=== PATIENT | female | born 1995 | race American Indian/Alaskan Native ===

== ENCOUNTER 2020-03-24 15:11 | Emergency (ER) | payer MEDICAID ==
--- NOTE | 2020-03-24 15:56 | Emergency Department Report ---
Blank Doc - Documentation Documentation: 24-year-old female that presents with nausea, increased burping and bilatearl flank pains. This initial assessment/diagnostic orders/clinical plan/treatment(s) is/are subject to change based on patient's health status, clinical progression and re- assessment by fellow clinical providers in the ED. Further treatment and workup at subsequent clinical providers discretion. Patient/guardians urged not to elope from the ED as their condition may be serious if not clinically assessed and managed. Initial orders include: 1- Patient sent to [facility] for further evaluation and treatment 2- UA
[2020-03-24 15:58] VITALS: BP 118/69
[2020-03-24 16:49] LABS: Bilirubin,Urine NEG (Negative); Blood,Urine NEG (Negative); Color,Urine Yellow (Yellow); HCG Qualitative,Urine Positive (Negative); Mucus,Urine 3+ /HPF; Protein,Urine <15 mg/dL mg/dL (Negative)
--- NOTE | 2020-03-24 20:20 | Ultrasound Report ---
ULTRASOUND OBSTETRIC Indication: back pain patient with abdominal pain Findings: There is a single intrauterine gestational sac but no yolk sac or pole is currently identified. The gestational sac measures about 6 mm, 5 weeks and 2 days. There is a mildly complex cystlike lesion measuring 1.5 cm in diameter within the right ovary. Left o vary is normal. There is tiny free pelvic fluid. IMPRESSION: 1. Suspect early intrauterine gestational sac without evidence of yolk sac or pole at this time . Close ultrasound follow-up is suggested. 2. 1.5 cm mildly complex cyst arising from the right ovary could represent a corpus luteal cyst. Atte ntion on follow-up recommended. Signer Name: Rg Munoz MD Signed: 03/24/2020 8:15 PM Workstation Name: [id number]
--- NOTE | 2020-03-24 21:20 | Emergency Department Report ---
ED General Adult HPI - General Chief complaint: Back Pain/Injury Stated complaint: BACK PAIN/HEART BURN Time Seen by Provider: 03/24/20 15:56 Source: patient Mode of arrival: Ambulatory Limitations: No Limitations - History of Present Illness Initial comments: Patient is a 24-year-old female presents emergency room with complaints of lower back pain that began a couple of days ago. She states that she also has acid reflux and has been taking Tums which helped bring relief but then it comes back. She denies any dysuria, vomiting, diarrhea, fever, vaginal bleeding, vaginal discharge. She states her last menstrual cycle was February 14. She states that she does not have a [employer]. She denies any past medical history or allergies to medications. - Related Data Previous Rx's Medication Instructions Recorded Last Taken Type Acetaminophen [Tylenol] 650 mg PO Q8HR PRN #14 capsule 03/24/20 Unknown Rx Metoclopramide [Reglan] 10 mg PO Q8HR PRN #12 tab 03/24/20 Unknown Rx cephALEXin [Keflex] 500 mg PO BID 7 Days #14 cap 03/24/20 Unknown Rx Allergies Allergy/AdvReac Type Severity Reaction Status Date / Time No Known Allergies Allergy Unverified 03/24/20 15:58 ED Review of Systems ROS: Stated complaint: BACK PAIN/HEART BURN Other details as noted in HPI Comment: All other systems reviewed and negative ED Past Medical Hx - Past Medical History Previous Medical History?: No - Surgical History Past Surgical History?: No - Social History Smoking Status: Never Smoker Substance Use Type: None - Medications Home Medications: Home Medications Medication Instructions Recorded Confirmed Last Taken Type Acetaminophen [Tylenol] 650 mg PO Q8HR PRN #14 capsule 03/24/20 Unknown Rx Metoclopramide [Reglan] 10 mg PO Q8HR PRN #12 tab 03/24/20 Unknown Rx cephALEXin [Keflex] 500 mg PO BID 7 Days #14 cap 03/24/20 Unknown Rx ED Physical Exam - General Limitations: No Limitations General appearance: alert, in no apparent distress - Head Head exam: Present: atraumatic, normocephalic - Eye Eye exam: Present: normal appearance - ENT ENT exam: Present: mucous membranes moist - Respiratory Respiratory exam: Present: normal lung sounds bilaterally. Absent: respiratory distress, wheezes, rales, rhonchi, stridor, chest wall tenderness, accessory muscle use, decreased breath sounds, prolonged expiratory - Cardiovascular Cardiovascular Exam: Present: regular rate, normal rhythm, normal heart sounds. Absent: systolic murmur, diastolic murmur, rubs, gallop - GI/Abdominal GI/Abdominal exam: Present: soft, normal bowel sounds. Absent: distended, tenderness, guarding, rebound, rigid - Back Exam Back exam: Absent: CVA tenderness (R), CVA tenderness (L) - Neurological Exam Neurological exam: Present: alert, oriented X3 - Psychiatric Psychiatric exam: Present: normal affect, normal mood - Skin Skin exam: Present: warm, dry, intact ED Course Vital Signs 03/24/20 15:56 Temperature 98.6 F Pulse Rate 95 H Respiratory 18 Rate Blood Pressure 118/69 O2 Sat by Pulse 100 Oximetry ED Medical Decision Making - Lab Data Lab Results 03/24/20 03/24/20 Range/Units 16:10 18:33 HCG, Quant 8039 H (0-4) mIU/mL Urine Color Yellow (Yellow) Urine Turbidity Slightly-cloudy (Clear) Urine pH 5.0 (5.0-7.0) Ur Specific [place] 1.030 (1.003-1.030) Urine Protein <15 mg/dl (Negative) mg/dL Urine Glucose (UA) Neg (Negative) mg/dL Urine Ketones Tr (Negative) mg/dL Urine Blood Neg (Negative) Urine Nitrite Neg (Negative) Urine Bilirubin Neg (Negative) Urine Urobilinogen 2.0 (<2.0) mg/dL Ur Leukocyte Esterase Mod (Negative) Urine WBC (Auto) 28.0 H (0.0-6.0) /HPF Urine RBC (Auto) 4.0 (0.0-6.0) /HPF U Epithel Cells (Auto) 14.0 H (0-13.0) /HPF Urine Mucus 3+ /HPF Urine HCG, Qual Positive A (Negative) - Radiology Data Radiology results: report reviewed Ordering Physician: CYNDY DALLAS NP Date of Service: 03/24/20 Procedure(s): US OB transvaginal Accession Number(s): [id number] cc: CYNDY DALLAS NP ULTRASOUND OBSTETRIC Indication: back pain patient with abdominal pain Findings: There is a single intrauterine gestational sac but no yolk sac or pole is currently identified. The gestational sac measures about 6 mm, 5 weeks and 2 days. There is a mildly complex cystlike lesion measuring 1.5 cm in diameter within the right ovary. Left ovary is normal. There is tiny free pelvic fluid. IMPRESSION: 1. Suspect early intrauterine gestational sac without evidence of yolk sac or pole at this time. Close ultrasound follow-up is suggested. 2. 1.5 cm mildly complex cyst arising from the right ovary could represent a corpus luteal cyst. Attention on follow-up recommended. Signer Name: Rg Munoz MD Signed: 03/24/2020 8:15 PM Workstation Name: [id number] Transcribed By: Dictated By: Rg Munoz MD Electronically Authenticated By: Rg Munoz MD Signed Date/Time: 03/24/202014 DD/ 12 TD/TT: - Medical Decision Making Patient is a 24-year-old female presents emergency room with complaints of lower back pain that began a couple of days ago. She states that she also has acid reflux and has been taking Tums which helped bring relief but then it comes back. She denies any dysuria, vomiting, diarrhea, fever, vaginal bleeding, vaginal discharge. She states her last menstrual cycle was February 14. She states that she does not have a [employer]. She denies any past medical history or allergies to medications. Vitals are normal. No abdominal tenderness or CVA tenderness on exam. hCG quant is 8039. UA with white blood cells and moderate leukocyte esterase, there are also many epithelial cells, could be related to contamination but given that patient is and having lower back pain will cover patient for UTI with Keflex. ua shows no protein and no glucose. OB US: 1. Suspect early intrauterine gestational sac without evidence of yolk sac or pole at this time. Close ultrasound follow-up is suggested. 2. 1.5 cm mildly complex cyst arising from the right ovary could represent a corpus luteal cyst. Attention on follow-up recommended. Discussed all results with patient and patient was given ultrasound report. Patient given prescription for Keflex, Reglan, Tylenol. Discussed with patient that she needed close [employer] monitoring. Advised patient Please take medication as prescribed. Please take antibiotic with food. Increase your water intake. Please follow the diet for acid reflux. May take Maalox [id number] for short-term. Please follow-up with [employer] [facility] for your care and for close monitoring. Please take your ultrasound report to the [facility] [employer] [facility]. Please take a vitamin [id number]. Return to the emergency room for any new or worsening symptoms. - Differential Diagnosis UTI, pyelonephritis, ectopic, IUP, ovarian cyst, muscle strain Critical care attestation.: If time is entered above; I have spent that time in minutes in the direct care of this critically ill patient, excluding procedure time. ED Disposition Clinical Impression: Early stage of UTI (urinary tract infection) Qualifiers: Urinary tract infection type: acute cystitis Hematuria presence: without hematuria Qualified Code(s): N30.00 - Acute cystitis without hematuria Ovarian cyst Qualifiers: Laterality: right Qualified Code(s): N83.201 - Unspecified ovarian cyst, right side GERD (gastroesophageal reflux disease) Qualifiers: Esophagitis presence: without esophagitis Qualified Code(s): K21.9 - Gastro- esophageal reflux disease without esophagitis Disposition: TO HOME OR SELFCARE Is pt being admited?: No Does the pt Need Aspirin: No Condition: Stable Instructions: (ED), Urinary Tract Infection in Women (ED), Diet for U lcers and Gastritis (ED), Gastroesophageal Reflux Disease (ED) Additional Instructions: Please take medication as prescribed. Please take antibiotic with food. Increase your water intake. Please follow the diet for acid reflux. May take Maalox [id number] for short-term. Please follow-up with [employer] for your care and for close monitoring. Please take your ultrasound report to the [facility]. Please take a vitamin [id number]. Return to the emergency room for any new or worsening symptoms. Prescriptions: cephALEXin [Keflex] 500 mg PO BID 7 Days #14 cap Metoclopramide [Reglan] 10 mg PO Q8HR PRN #12 tab PRN Reason: Nausea And Vomiting Acetaminophen [Tylenol] 650 mg PO Q8HR PRN #14 capsule PRN Reason: pain Referrals: [facility] [Provider Group] - 2-3 Days [facility] [Provider Group] - 2-3 Days [facility] [Provider Group] - 2-3 Days Time of Disposition: 21:18 Print Language: PALESTINIAN
== END 2020-03-24 21:25 | disposition home or self-care (01) ==
LOC: ED 15:11
DX: O23.41 Unspecified infection of urinary tract in pregnancy, first trimester (principal); O34.81 Maternal care for other abnormalities of pelvic organs, first trimester; O99.611 Diseases of the digestive system complicating pregnancy, first trimester; N83.201 Unspecified ovarian cyst, right side; K21.9 Gastro-esophageal reflux disease without esophagitis; Z3A.01 Less than 8 weeks gestation of pregnancy; Z79.899 Other long term (current) drug therapy
CPT/HCPCS: 36415; 76801; 76817; 81001; 81025; 84702; 87086